=== PATIENT | female | born 1995 | race Caucasian/White ===

== ENCOUNTER 2018-07-02 15:56 | Emergency (ER) | payer MEDICAID, SELFPAY ==
[2018-07-02 15:58] VITALS: BP 119/75; PULSE 107; RESP 18; TEMP 37.1; O2SAT 97
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
[2018-07-02] MEDS: Acetaminophen 500 MG TAB 1000 MG PO (16:19)
[2018-07-02 17:04] LABS: Abs Immature Grans 0.02 k/cumm (0.0-0.09); Absolute Basophil Count 0.03 k/cumm (0.0-0.2); Absolute Eosinophil Count 0.07 k/cumm (0.0-0.7); Absolute Lymphocyte Count 2.56 k/cumm (1.2-3.4); Absolute Monocyte Count 0.96 k/cumm (0.11-0.7); Basophils % 0.2; Eosinophils % 0.5; HCT 43.2 % (36.0-46.0); HGB 14.8 g/dL (12.0-15.5); Immature Grans % 0.2; Lymphocytes % 19.6; Mean Corp. HGB Concentration 34.3 g/dL (32.0-36.0); Mean Corpuscular Volume 90.6 fL (80-95); Mean Platelet Volume 10.8 fL (8.0-11.0); Monocytes % 7.4; Neutrophils % 72.1; Platelet Count 227 x1000/uL (130-400); RBC 4.77 m/cumm (4.00-5.20); RBC Distribution Width 12.6 % (11.7-14.6); White Blood Cell Count 13.04 k/cumm (4.4-10.8)
[2018-07-02 17:15] LABS: Anion Gap 11.9 mmol/L (3-11); BUN 17 mg/dL (7-18); CO2 23.1 mmol/L (21.0-32.0); CREATININE 0.77 mg/dL (0.55-1.02); Calcium 8.9 mg/dL (8.5-10.1); Chloride 105 mmol/L (98-107); Glucose 88 mg/dL (70-100); Sodium 140 mmol/L (136-145)
[2018-07-02 17:35] LABS: HCG Quant, Pregnancy < 1 mIU/mL (1-3)
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
[2018-07-02 18:14] VITALS: BP 124/79; PULSE 77; RESP 16; O2SAT 98
== END 2018-07-02 18:19 | disposition home or self-care (01) ==
LOC: ER 18:21
PROVIDERS: Emergency Provider Emergency Medicine; PCP Family Medicine
DX: S10.93XA Contusion of unspecified part of neck, initial encounter (principal); S20.222A Contusion of left back wall of thorax, initial encounter; Y04.2XXA Assault by strike against or bumped into by another person, initial encounter
CPT/HCPCS: 80048; 99284; 71046; 84702; 85025

== ENCOUNTER 2018-07-29 13:26 | Emergency (ER) | payer MEDICAID, SELFPAY ==
[2018-07-29 13:37] VITALS: BP 131/66; PULSE 86; RESP 14; TEMP 37.2; O2SAT 97
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
[2018-07-29 13:57] VITALS: BP 121/67; PULSE 86; RESP 20; O2SAT 98
[2018-07-29] MEDS: Acetaminophen 500 MG TAB 1000 MG PO (13:58)
[2018-07-29 15:36] VITALS: BP 118/75; PULSE 98; RESP 16; TEMP 37.4; O2SAT 99
== END 2018-07-29 15:36 | disposition home or self-care (01) ==
PROVIDERS: Emergency Provider Emergency Medicine; PCP Family Medicine
DX: T76.11XA Adult physical abuse, suspected, initial encounter (principal); S09.90XA Unspecified injury of head, initial encounter; S09.93XA Unspecified injury of face, initial encounter; S50.01XA Contusion of right elbow, initial encounter; S60.221A Contusion of right hand, initial encounter; S60.222A Contusion of left hand, initial encounter; Y04.0XXA Assault by unarmed brawl or fight, initial encounter
CPT/HCPCS: 81025; 99284; 70450; 70486; 71046; 73080; 73130; 99285

== ENCOUNTER 2019-03-22 10:44 | Emergency (ER) | payer MEDICAID, SELFPAY ==
[2019-03-22 10:48] VITALS: BP 116/85; PULSE 88; RESP 20; TEMP 36.2; O2SAT 98
--- NOTE | 2019-03-22 11:02 | ED.GENADUL_ITS ---
Discharge Plan Disposition Patient Disposition: HOME Condition: Stable Discharge Details Chief Complaint: Abd Prob Clinical Impression: Vomiting, Acute head trauma Primary Care Provider: César Chu ED Provider: Kartik Carlson Home Meds and New Rx's Prescriptions: New ondansetron 4 mg tablet,disintegrating 4 mg PO TID-QID PRN (Reason: nausea and vomiting) Qty: 30 RF: 0 Continued trazodone 50 mg tablet 100 mg PO QHS PRN (Reason: sleep) Qty: 120 RF: 4 methylphenidate HCl 20 mg tablet 20 mg PO DAILY MDD 20 mgs or one pill Qty: 30 RF: 0 Discharge Instructions Additional Instructions: your lab work and cat scan did not show any significant findings try to limit alcohol intake to 1 drink daily if symptoms persist in to next week see your primary care provider return to the emergency department if you have severe worsening symptoms or if you feel more ill Medical Decision Making 23yo female with hx of cyclic vomit, prior drug abuse and denies recent drug use comes in with n/v today. She binged drink significant amount of alcohol last night and today has had n/v with abdominal pain with vomit. She denies new meds, recent travel, fevers, chest pain or sob. She appears anxious on exma. She has a soft abdomen with pain to soft palpation everywhere but with distraction has no tenderness, no guarding or rebuond. Will tx her symptoms and reassess, do not feel imaging of abdomen indicated at this time pt remains stable, wbc of 18 and still has epigastric pain, will image to eval for entities such as enteritis. She now states she fell and hit her head this morning, given the vomit will image to eval for tbi imaging negative per Dr. Trent, she remains stable, suspect leukocytosis stress induced from the vomit. Will d/c and advised f/u with pcp, return precautions given. She has no tenderness on exam with distraction Differential Diagnosis cyclic vomit, drug use, alcohol abuse Medical Records Medical records reviewed: Yes I reviewed the patient's medical records. Imaging Data Radiologic Study: Attestation: I personally reviewed and interpreted this imaging study as follows: Imaging: CT Scan Radiologist's impression: no acute findings per Dr. Trent on head ct Radiologic Study #2: Attestation: I personally reviewed and interpreted this imaging study as follows: Imaging: CT Scan Radiologist's impression: no acute findings on abd/pelvis Ct per Dr. Trent Lab Data Lab results reviewed: Yes I reviewed the patient's lab results. HPI General Mode of arrival: EMS . Date/Time Provider Initiated Documentation: 03/22/19 10:45 . Limitations to Documentation: no limitations . Information obtained by: patient . History of Present Illness 23 year old F presents to the emergency department with the chief complaint of n/v, described as moderate, Patient started experiencing this day(s) (1) and it has been constant. No relieving factors improve symptom(s), No exacerbating factors reported . Patient did receive the following treatments prior to arrival, none Related Data Home Medications Medication Instructions Recorded Confirmed methylphenidate 20 mg tablet 20 mg PO DAILY #30 tab MDD 20 mgs 02/22/19 03/22/19 or one pill trazodone 50 mg tablet 100 mg PO QHS PRN #120 tab 02/22/19 03/22/19 ondansetron 4 mg PO TID-QID PRN #30 tab 03/22/19 Previous Rx's Medication Instructions Recorded methylphenidate 20 mg tablet 20 mg PO DAILY #30 tab MDD 20 mgs 02/22/19 or one pill trazodone 50 mg tablet 100 mg PO QHS PRN #120 tab 02/22/19 ondansetron 4 mg PO TID-QID PRN #30 tab 03/22/19 Allergies Allergy/AdvReac Type Severity Reaction Status Date / Time promethazine HCl Allergy Severe loses Unverified 03/22/19 10:54 [From Phenergan] control of body General Stated Complaint: Abd Prob MATTEO: 3 Review of Systems Review of Systems All systems reviewed & are unremarkable except as noted in HPI and below Constitutional Denies chills and Denies fever(s) Cardiovascular Denies chest pain and Denies dyspnea Respiratory Denies cough and Denies dyspnea Genitourinary Denies dysuria Musculoskeletal Denies joint swelling Integumentary/Breasts Denies rash [facility] Social History Smoking/Tobacco Use Status: Current every day Alcohol Intake: current Alcohol Intake frequency: 0-2 drinks per day Drug use: Daily Substance use type: does not use Seatbelt use: always Helmet use: Yes Exam Const General: anxious Orientation: alert HENMT Head: normal to inspection Ears: external ears normal General nose exam: external nose normal Mouth: moist mucous membranes Eyes General: appearance normal, both eyes and all related structures Neck Neck: normal visual inspection Resp Effort & Inspection: normal respiratory effort and able to speak in complete sentences Cardio Rate: regular rate GI Palpation: soft Skin General skin exam: no rashes or lesions noted Neuro General: alert and oriented x3 Extrem General: normal to inspection Psych Mental Status: mental status grossly normal Course Vital Signs Temperature 36.2 C L 03/22/19 10:48 Pulse 88 03/22/19 10:48 Respiratory Rate 03/22/19 10:48 Blood Pressure 116/85 03/22/19 10:48 Pulse Oximetry 98 03/22/19 10:48 Temperature 36.2 C L 03/22/19 10:48 Pulse 88 03/22/19 10:48 Respiratory Rate 20 03/22/19 10:48 Respiratory Effort Non-Labored 03/22/19 10:52 Blood Pressure 116/85 03/22/19 10:48 Blood Pressure Position Supine 03/22/19 10:48 Pulse Oximetry 98 03/22/19 10:48 Oxygen Delivery Method Room Air 03/22/19 10:48 Oxygen Flow Rate 0 03/22/19 10:48 Pain Level 10 03/22/19 10:48
[2019-03-22] MEDS: Normal Saline 1,000 ML 1000 ML IV (11:12)
[2019-03-22] MEDS: LORazepam 2 MG/ML VIAL 1 MG IVP (11:12)
[2019-03-22 11:17] LABS: Absolute Eosinophil Count 0.06 k/cumm (0.0-0.7); Absolute Lymphocyte Count 2.63 k/cumm (1.2-3.4); Basophils % 0.2; Eosinophils % 0.3; HCT 47.5 % (36.0-46.0); HGB 16.3 g/dL (12.0-15.5); Immature Grans % 0.5; Lymphocytes % 14.3; Mean Corp. HGB Concentration 34.3 g/dL (32.0-36.0); Mean Corpuscular Volume 90.5 fL (80-95); Mean Platelet Volume 10.9 fL (8.0-11.0); Monocytes % 5.4; Neutrophils % 79.3; Platelet Count 306 x1000/uL (130-400); RBC 5.25 m/cumm (4.00-5.20); RBC Distribution Width 13.8 % (11.7-14.6)
[2019-03-22 11:18] LABS: Absolute Basophil Count 0.04 k/cumm (0.0-0.2); Absolute Monocyte Count 0.99 k/cumm (0.11-0.7); Absolute Neutrophil Count 14.59 k/cumm (1.2-6.7)
[2019-03-22 11:31] LABS: ALT 25 U/L (12-78); AST 18 U/L (15-37); Albumin 4.6 g/dL (3.4-5.0); Alkaline Phosphatase 77 U/L (46-116); Anion Gap 15.2 mmol/L (3-11); BUN 15 mg/dL (7-18); Bilirubin, Total 0.2 mg/dL (0.2-1.0); CO2 22.8 mmol/L (21.0-32.0); CREATININE 0.95 mg/dL (0.55-1.02); Calcium 9.8 mg/dL (8.5-10.1); Chloride 102 mmol/L (98-107); Glucose 130 mg/dL (70-100); Lipase 130 U/L (73-393); Magnesium 1.6 mg/dL (1.8-2.4); Potassium 3.2 mmol/L (3.5-5.1); Sodium 140 mmol/L (136-145); Total Protein 8.7 g/dL (6.4-8.2)
--- NOTE | 2019-03-22 11:34 | DI.CT_ITS ---
SYMPTOMS/DIAGNOSIS: RIGHT-SIDED ABDOMINAL PAIN, NAUSEA/VOMITING CT SCAN OF THE ABDOMEN AND PELVIS: CT scan of the abdomen and pelvis was performed following the uneventful administration of intravenous contrast material. Comparison is 09/20/17. The visualized lung bases are clear. The liver is normal in size. No suspicious hepatic mass is seen. The patient is status post cholecystectomy. No biliary ductal dilatation is present. The portal, superior mesenteric and splenic veins are patent. The pancreas, spleen and adrenal glands are unremarkable, as are the kidneys, ureters and bladder. The reproductive organs are unremarkable. The bowel shows no evidence of obstruction or inflammation. There is a normal appendix present. The abdominal aorta is of normal caliber. No significant abdominal or pelvic adenopathy, ascites or pneumoperitoneum is present. No acute osseous abnormality is identified. IMPRESSION: No evidence of an acute abdomen. The findings were discussed with the Emergency Department on the date of the examination.
--- NOTE | 2019-03-22 11:34 | DI.CT_ITS ---
SYMPTOMS/DIAGNOSIS: FALL, HEADACHE, VOMITING CRANIAL CT: Noncontrast. Comparison 07/29/18. The ventricular system is normal in appearance. There is no evidence of an intracranial mass lesion. There is no evidence of a subdural or epidural hematoma. No focal areas of decreased attenuation are seen. CONCLUSION: Normal noncontrast Cranial CT. The findings were discussed with the emergency department on the date of the examination.
--- NOTE | 2019-03-22 11:37 | NUR.NOTE ---
Nursing Note: Pt expressed recent fall into the bath tub. Small red arnol noted to left side of forehead. Pt denied loss of consciousness, neck, and back pain. made aware of finding.
[2019-03-22 11:41] LABS: ETHANOL BLOOD < 3.0 mg/dL (<3)
[2019-03-22 11:49] LABS: HCG Qual (Serum) Negative
[2019-03-22] MEDS: Ondansetron 4 MG/2 ML VIAL IVP (11:58)
[2019-03-22] MEDS: Omnipaque 350 MG/ML 100 ML BTL IJ (12:33)
[2019-03-22] MEDS: Ketorolac 15 MG/ML VIAL IVP (12:51)
[2019-03-22 13:06] VITALS: BP 109/60; PULSE 81; RESP 16; TEMP 36.7; O2SAT 100
== END 2019-03-22 13:10 | disposition home or self-care (01) ==
PROVIDERS: Emergency Provider Emergency Medicine; PCP Family Medicine
DX: R11.2 Nausea with vomiting, unspecified (principal); R10.13 Epigastric pain; S09.90XA Unspecified injury of head, initial encounter; W01.0XXA Fall on same level from slipping, tripping and stumbling without subsequent striking against object, initial encounter
CPT/HCPCS: 36415; 80053; 83690; 96361; 96374; 96375; 99285; 70450; 74177; 80320; 83735; 84703; 85025; 99284; J1885; J2060; J2405; J3490

== ENCOUNTER 2019-04-06 13:16 | Outpatient (CLI) | payer MEDICAID, SELFPAY ==
[2019-04-06 14:02] LABS: Abs Immature Grans 0.06 k/cumm (0.0-0.09); Absolute Basophil Count 0.04 k/cumm (0.0-0.2); Absolute Eosinophil Count 0.49 k/cumm (0.0-0.7); Absolute Lymphocyte Count 4.31 k/cumm (1.2-3.4); Absolute Monocyte Count 1.01 k/cumm (0.11-0.7); Basophils % 0.3; Eosinophils % 3.9; HCT 44.8 % (36.0-46.0); HGB 15.4 g/dL (12.0-15.5); Immature Grans % 0.5; Lymphocytes % 34.5; Mean Corp. HGB Concentration 34.4 g/dL (32.0-36.0); Mean Corpuscular Volume 90.3 fL (80-95); Mean Platelet Volume 10.4 fL (8.0-11.0); Monocytes % 8.1; Neutrophils % 52.7; Platelet Count 252 x1000/uL (130-400); RBC 4.96 m/cumm (4.00-5.20); RBC Distribution Width 13.8 % (11.7-14.6); White Blood Cell Count 12.48 k/cumm (4.4-10.8)
[2019-04-06 14:06] LABS: Absolute Neutrophil Count 6.58 k/cumm (1.2-6.7)
[2019-04-06 14:40] LABS: ALT 21 U/L (12-78); AST 19 U/L (15-37); Albumin 4.4 g/dL (3.4-5.0); Alkaline Phosphatase 93 U/L (46-116); Anion Gap 13.4 mmol/L (3-11); BUN 10 mg/dL (7-18); Bilirubin, Total 0.7 mg/dL (0.2-1.0); CO2 24.6 mmol/L (21.0-32.0); CREATININE 0.84 mg/dL (0.55-1.02); Calcium 9.3 mg/dL (8.5-10.1); Chloride 102 mmol/L (98-107); Glucose 75 mg/dL (70-100); Potassium 3.8 mmol/L (3.5-5.1); Sodium 140 mmol/L (136-145)
[2019-04-07 10:46] LABS: Hepatitis B Surface Ag Negative (NEGAT)
[2019-04-07 10:52] LABS: Hepatitis C Ab w Rflx HCV PCR Negative (NEGAT)
[2019-04-07 11:06] LABS: HIV-1/2 Ag & Ab Screen Negative (NEGAT)
[2019-04-07 12:31] LABS: Chlamydia Result Negative; GC Result Negative; Specimen Description URINE
[2019-04-07 16:01] LABS: Syphilis Total Ab w/Reflex Nonreactive (Nonreactive)
[2019-04-07 23:41] LABS: HSV 1 PCR, Blood Negative (Negative); HSV 2 PCR, Blood Negative (Negative)
== END 2019-04-06 13:36 ==
PROVIDERS: Internal Medicine; PCP Family Medicine; Visit Provider Nurse Practitioner Women's Health
DX: Z11.3 Encounter for screening for infections with a predominantly sexual mode of transmission (principal); F10.10 Alcohol abuse, uncomplicated; R79.89 Other specified abnormal findings of blood chemistry; Z11.4 Encounter for screening for human immunodeficiency virus [HIV]; Z11.59 Encounter for screening for other viral diseases
CPT/HCPCS: 36415; 80053; 86803; 87340; 87389; 87491; 87529; 87591; 85025; 86780

== ENCOUNTER 2019-07-20 10:05 | Emergency (ER) | payer MEDICAID, SELFPAY ==
[2019-07-20 10:08] VITALS: BP 103/48; PULSE 94; RESP 16; TEMP 36.6; O2SAT 98
--- NOTE | 2019-07-20 10:35 | W.ED.GENAD ---
Discharge Plan Disposition Patient Disposition: HOME Condition: Good Discharge Details Chief Complaint: RashLesion Clinical Impression: Abscess Primary Care Provider: Xi Lee ED Provider: Zeb Johnson Home Meds and New Rx's Prescriptions: No Action cephalexin 500 mg capsule 500 mg PO TID RF: 0 trazodone 50 mg tablet 100 mg PO QHS PRN (Reason: sleep) Qty: 120 RF: 4 gabapentin 300 mg capsule 300 mg PO TID PRN (Reason: anxiety) Qty: 30 RF: 1 naltrexone 50 mg tablet 50 mg PO DAILY Qty: 30 RF: 3 medroxyprogesterone 150 mg/mL syringe 150 mg IM [id number] Qty: 1 RF: 5 hydroxyzine HCl 50 mg tablet 50 mg PO QID PRNRF: 0 albuterol sulfate [ProAir HFA] 90 mcg/actuation HFA aerosol inhaler 2 puff IH Q6H PRN (Reason: shortness of breath or wheezing) Qty: 18 RF: 0 methylphenidate HCl 20 mg tablet 20 mg PO DAILY MDD 20 mgs or one pill Qty: 30 RF: 0 ondansetron 4 mg tablet,disintegrating 4 mg PO TID-QID PRN (Reason: nausea and vomiting) Qty: 30 RF: 0 Discharge Instructions Instructions: Abscess (ED) Additional Instructions: Apply warm compresses 4 times a day for the next 3 days. Return immediately to the emergency department for any signs of infection or worsening symptoms otherwise take your normally prescribed medications as recommended and follow-up with your primary care provider as needed Referrals: Xi Lee MD [Primary Care Provider] - Medical Decision Making Patient presenting to the emergency department for chief complaint of pimple behind left ear. Patient states that she gets these quite often and has had this on for a week. She has attempted to squeeze it and pop it but it is gotten worse. Patient denies any fever chills, audible discharge, any other areas of current sores or lesions. Physical exam shows a 1 cm circular abscess with fluid collection viewed via bedside ultrasound behind the left inferior posterior ear. Exam is otherwise unremarkable. Did discuss with patient and obtain verbal consent for drainage of the abscess with needle aspiration. Abscess culture was sent but all purulent fluid was removed and given small size I do not feel that any antibiotics are required at this time. Return precautions were discussed. After discussion of diagnosis and plan of care patient has no further needs, questions, or concerns and states clear understanding to return to the emergency department for any worsening symptoms. HPI General Mode of arrival: ambulatory. Date/Time Provider Initiated Documentation: 07/20/19 10:06. Limitations to Documentation: no limitations. Information obtained by: patient and RN notes reviewed. History of Present Illness 23 year old F presents to the emergency department with the chief complaint of pimple behind left ear, described as moderate, with intensity rated at 8. Quality is described as aching, and is localized to the left (ear). Patient started experiencing this week(s) (1) and it has been constant. Patient notes no other symptoms.. Patient did receive the following treatments prior to arrival, none Related Data Home Medications Medication Instructions Recorded Confirmed ondansetron 4 mg PO TID-QID PRN #30 tab 03/22/19 07/06/19 methylphenidate HCl 20 mg tablet 20 mg PO DAILY #30 tab MDD 20 mgs 03/27/19 07/06/19 or one pill hydroxyzine HCl 50 mg tablet 50 mg PO QID PRN 04/06/19 07/06/19 cephalexin 500 mg capsule 500 mg PO TID 06/30/19 07/06/19 gabapentin 300 mg capsule 300 mg PO TID PRN #30 cap 06/30/19 07/06/19 naltrexone 50 mg tablet 50 mg PO DAILY #30 tab 06/30/19 07/06/19 trazodone 50 mg tablet 100 mg PO QHS PRN #120 tab 06/30/19 07/06/19 albuterol sulfate 90 mcg/actuation 2 puff IH Q6H PRN #18 gm 07/06/19 07/06/19 aerosol inhaler medroxyprogesterone 150 mg/mL 150 mg IM [id number] #1 ml 07/06/19 07/06/19 intramuscular syringe Previous Rx's Medication Instructions Recorded ondansetron 4 mg PO TID-QID PRN #30 tab 03/22/19 methylphenidate HCl 20 mg tablet 20 mg PO DAILY #30 tab MDD 20 mgs 03/27/19 or one pill gabapentin 300 mg capsule 300 mg PO TID PRN #30 cap 06/30/19 naltrexone 50 mg tablet 50 mg PO DAILY #30 tab 06/30/19 trazodone 50 mg tablet 100 mg PO QHS PRN #120 tab 06/30/19 albuterol sulfate 90 mcg/actuation 2 puff IH Q6H PRN #18 gm 07/06/19 aerosol inhaler medroxyprogesterone 150 mg/mL 150 mg IM [id number] #1 ml 07/06/19 intramuscular syringe Allergies Allergy/AdvReac Type Severity Reaction Status Date / Time promethazine HCl Allergy Severe loses Verified 07/06/19 13:53 [From Phenergan] control of body General Stated Complaint: RashLesion MATTEO: 4 Review of Systems Constitutional Constitutional: Denies fever(s) ENT Ears, Nose, Mouth, and Throat: Reports as per HPI and Denies ear discharge Integumentary/Breasts Skin/Breast: Reports as per HPI [facility] Medical History EtOH dependence (Acute) Surgical History section (11/05/16) LTCS. 30w2d. F. 2lb 13oz. [facility] [place]. Pt transfered [place] [facility] [place] pre[place]. Pt received IUD at time of surgery. Family History Mother Gout Hyperlipidemia Kidney stones Asthma Father No problems noted. Sister Depression Brother No problems noted. Brother No problems noted. Social History Smoking/Tobacco Use Status: Current every day Tobacco Type: cigarettes Alcohol Intake: former Drug use: Daily Substance use type: does not use and marijuana Seatbelt use: always Helmet use: Yes Do you feel safe at home: Yes Do you feel safe in your relationship?: Yes Female Reproductive History Menstrual Age of Menarche: 14 control method: none History History 2 Para 1 Hx # Term Pregnancies Multiple births Hx # Pregnancies Ectopic pregnancies AB induced Hx Number of Living Children AB spontaneous Exam HENMT Head: normocephalic and atraumatic Ears: hearing grossly normal bilaterally, TM's normal bilaterally, mastoids normal and external ear abnormal other (Left posterior abscess approximately 1 cm diameter) Face and sinus: normal facial exam Resp Effort & Inspection: normal respiratory effort and able to speak in complete sentences Course Vital Signs Vital signs: Vital Signs Temperature 36.6 C 07/20/19 10:08 Pulse 94 H 07/20/19 10:08 Respiratory Rate 16 07/20/19 10:08 Blood Pressure 103/48 L 07/20/19 10:08 Pulse Oximetry 98 07/20/19 10:08 Temperature 36.6 C 07/20/19 10:08 Temperature Source Skin 07/20/19 10:08 Pulse 94 H 07/20/19 10:08 Respiratory Rate 16 07/20/19 10:08 Respiratory Effort Non-Labored 07/20/19 10:09 Blood Pressure 103/48 L 07/20/19 10:08 Blood Pressure Position Sitting 07/20/19 10:08 Pulse Oximetry 98 07/20/19 10:08 Oxygen Delivery Method Room Air 07/20/19 10:08 Oxygen Flow Rate 0 07/20/19 10:08 Pain Level 8 07/20/19 10:08 Procedures Abscess I/D Site: Other (Posterior ear) Side (if applicable): Left Sedation/analgesia: None Technique: Needle Aspiration Amount of fluid expressed (mL): 0.5 Irrigation: No Packing used?: None
[2019-07-20 11:01] VITALS: BP 103/48; PULSE 94; RESP 16; TEMP 36.6; O2SAT 98
== END 2019-07-20 11:01 | disposition home or self-care (01) ==
PROVIDERS: Emergency Provider Nurse Practitioner Family; PCP Internal Medicine
DX: L02.811 Cutaneous abscess of head [any part, except face] (principal)
CPT/HCPCS: 10160; 87077; 87070; 87186; 87205